=== PATIENT | female | born 1995 | race Caucasian/White ===

== ENCOUNTER 2019-05-30 17:38 | Emergency (ER) | payer OTHER ==
[~2019-05-30] VITALS: Ht 157.5 cm; Wt 92.1 kg
[2019-05-30 18:23] VITALS: BP 148/85
--- NOTE | 2019-05-30 18:26 | NUR ---
PT AMBULATED TO LOBBY
--- NOTE | 2019-05-30 18:54 | NUR ---
PT AMBULATED TO BED 3.
--- NOTE | 2019-05-30 19:09 | NUR ---
PT C/O ABD PAIN X 2 DAYS, 7/10 CRAMPING .AWAKE , ALERT , AFIBRILE . ANICTERIC SCLERA , PALE CUNJUCTIVAE , SCE , CBS , SOFT NABS NONTENDER ABDOMEN. PMHX ANEMIA MEDS FERROUS SULFATE.
--- NOTE | 2019-05-30 19:16 | NUR ---
give report to elgin mcqueen.
[2019-05-30 20:11] LABS: BASOPHILS % (AUTO) 0.2 % (0.0-2.0); EOSINOPHILS # (AUTO) 0.2 K/uL (0-0.4); EOSINOPHILS % (AUTO) 2.2 % (0.0-4.0); HEMATOCRIT 28.3 % (36-48); HEMOGLOBIN 8.8 g/dL (12.0-16.0); LYMPHOCYTES # (AUTO) 2.2 K/uL (2.5-16.5); LYMPHOCYTES % (AUTO) 28.4 % (20.5-51.1); MEAN CORPUSCULAR HEMOGLOBIN 22 pg (27-31); MEAN CORPUSCULAR HGB CONC 31 g/dL (33-37); MEAN CORPUSCULAR VOLUME 70.3 fL (80-94); MONOCYTES # (AUTO) 0.5 K/uL (0.8-1.0); MONOCYTES % (AUTO) 6.2 % (1.7-9.3); NEUTROPHILS # (AUTO) 4.9 K/uL (1.8-7.7); PLATELET COUNT (AUTO) 245 K/uL (140-450); RED BLOOD CELL COUNT(AUTO) 4.03 MIL/uL (4.20-5.40); RED CELL DISTRIBUTION WIDTH 18.7 % (11.6-13.7); WHITE BLOOD COUNT (AUTO) 7.7 K/uL (4.8-10.8)
--- NOTE | 2019-05-30 20:30 | NUR ---
PATIENT AOX4, BREATHING EVEN AND UNLABORED
[2019-05-30 21:47] VITALS: BP 116/80
--- NOTE | 2019-05-30 21:47 | NUR ---
Patient discharged with v/s stable. Written and verbal after care instructions about abnormal uterine bleeding given and explained. Patient alert, oriented and verbalized understanding of instructions. Ambulatory with steady gait. All questions addressed prior to discharge. ID band removed. Patient advised to follow up with PMD. Rx of provera given. Patient educated on indication of medication including possible reaction and side effects. Opportunity to ask questions provided and answered. Patient verbalizes understands to come back when feeling dizziness, passing out.
== END 2019-05-30 21:47 | disposition home or self-care (01) ==
LOC: MED 17:38
DX: N93.9 Abnormal uterine and vaginal bleeding, unspecified (principal); D64.9 Anemia, unspecified; Z88.1 Allergy status to other antibiotic agents
CPT/HCPCS: 36415; 81025; 84443; 85025; 99283

== ENCOUNTER 2019-06-14 08:10 | Emergency (ER) | payer OTHER ==
[~2019-06-14] VITALS: Ht 157.5 cm; Wt 96.2 kg
[2019-06-14 08:17] VITALS: BP 108/67
--- NOTE | 2019-06-14 08:22 | NUR ---
Patient ambulated to bed 4. RN evaluating patient at bedside.
--- NOTE | 2019-06-14 08:48 | NUR ---
Dr. Brady is evaluating the patient at bedside.
--- NOTE | 2019-06-14 09:31 | NUR ---
pt c/o Vaginal Bleeding x1 month, bright red blood. Per pt going through pads every 1.5 hour. Pt seen for same issue x2 weeks ago at [facility]. Did not follow up with PCP. reports no n/v/d at this time. states last thursday she did experience nausea/vomiting with dizziness for 1 day. pt also reports suprapubic and lower back pain 08/30. denies uti s/s. pt alert and awake. Med hx: anemic
[2019-06-14 10:25] LABS: BASOPHILS % (AUTO) 0.7 % (0.0-2.0); EOSINOPHILS # (AUTO) 0.1 K/uL (0-0.4); EOSINOPHILS % (AUTO) 1.8 % (0.0-4.0); HEMOGLOBIN 9.9 g/dL (12.0-16.0); LYMPHOCYTES # (AUTO) 1.9 K/uL (2.5-16.5); LYMPHOCYTES % (AUTO) 30.9 % (20.5-51.1); MEAN CORPUSCULAR HEMOGLOBIN 21 pg (27-31); MEAN CORPUSCULAR HGB CONC 30 g/dL (33-37); MONOCYTES # (AUTO) 0.3 K/uL (0.8-1.0); MONOCYTES % (AUTO) 5.7 % (1.7-9.3); NEUTROPHILS # (AUTO) 3.7 K/uL (1.8-7.7); NEUTROPHILS % (AUTO) 60.9 % (42.2-75.2); PLATELET COUNT (AUTO) 270 K/uL (140-450); RED BLOOD CELL COUNT(AUTO) 4.71 MIL/uL (4.20-5.40); RED CELL DISTRIBUTION WIDTH 18.3 % (11.6-13.7)
[2019-06-14 11:04] VITALS: BP 108/67
--- NOTE | 2019-06-14 11:04 | NUR ---
Patient discharged with v/s stable. Written and verbal after care instructions given and explained. Patient alert, oriented and verbalized understanding of instructions. Ambulatory with steady gait. All questions addressed prior to discharge. ID band removed. Patient advised to follow up with PMD. Rx of PROVERA given. Patient educated on indication of medication including possible reaction and side effects. Opportunity to ask questions provided and answered.
== END 2019-06-14 11:04 | disposition home or self-care (01) ==
LOC: MED 08:10
DX: N93.9 Abnormal uterine and vaginal bleeding, unspecified (principal); D64.9 Anemia, unspecified; Z90.49 Acquired absence of other specified parts of digestive tract; Z88.1 Allergy status to other antibiotic agents
CPT/HCPCS: 36415; 85025; 99283